=== PATIENT | female | born 1960 | race African-American/Black ===

== ENCOUNTER 2021-03-21 18:14 | Emergency (ER) | payer BC ==
[2021-03-21 18:26] VITALS: BP 175/76; PULSE 72; TEMP 97.6; BMI 31.4
[2021-03-21] MEDS ORDERED: LIDOCAINE 5% TOPICAL PATCH TP ONE (18:37)
[2021-03-21] MEDS ORDERED: NAPROXEN 500 MG TABLET PO ONE (18:37)
[2021-03-21] MEDS ORDERED: PRESCRIPTION PAD 1 EACH EACH NR ONE (18:55)
[2021-03-21] MEDS ORDERED: LIDOCAINE 5% TOPICAL PATCH ONE (18:56)
[2021-03-21] MEDS ORDERED: NAPROXEN 500 MG TABLET ONE (18:56)
[2021-03-21] MEDS ORDERED: SODIUM CHLORIDE 1,000 ML IV ONE (19:36)
[2021-03-21 19:39] LABS: EPITHELIAL CELLS FEW /hpf
[2021-03-21 20:36] LABS: ALBUMIN 4.2 g/dl (3.4-5.0); BILIRUBIN,TOTAL 0.4 mg/dl (0.2-1); CREATININE 0.7 mg/dl (0.55-1.3); TOT PROT 7.2 g/dl (6.4-8.2)
[2021-03-21 21:49] LABS: BASO % 0.4 % (0-2.0); EOS % 1.8 % (0-4.5); HEMATOCRIT 37.6 % (32.4-45.2); HEMOGLOBIN 12.2 GM/dL (10.7-15.3); LYMPH % 43.2 % (8-40); MCH 25.8 pg (25.7-33.7); MCHC 32.5 g/dl (32.0-36.0); MEAN CELL VOLUME 79.3 fl (80-96); MEAN PLT VOLUME 9.7 fl (7.5-11.1); MONO % 5.4 % (3.8-10.2); NEUT % 49.2 % (42.8-82.8); PLATELET COUNT 247 10^3/uL (134-434); RBC 4.74 M/mm3 (3.60-5.2); RDW 13.7 % (11.6-15.6); WHITE BLOOD COUNT 10.2 K/mm3 (4.0-10.0)
[2021-03-21] MEDS ORDERED: LIDOCAINE PATCH REMOVAL MC SCH (22:00)
== END 2021-03-21 22:16 | disposition home or self-care (01) ==
LOC: FER 18:14
PROC: 3E0337Z Introduction of Electrolytic and Water Balance Substance into Peripheral Vein, Percutaneous Approach (ICD-10-PCS; principal; 2021-03-21)
DX: M54.50 Low back pain, unspecified (principal)
CPT/HCPCS: 36415; 74176-TC; 80053; 81003; 81015; 85025; 87086; 99285-25

== ENCOUNTER 2022-01-11 04:28 | Day surgery (SDC) | payer BC ==
[2022-01-09 15:57] VITALS: BMI 32.9
[2022-01-11 09:10] VITALS: BP 113/67; PULSE 62; RESP 16; TEMP 97
[2022-01-11] MEDS ORDERED: ONDANSETRON 4 MG/2 ML VIAL IVPUSH PRN (09:39)
[2022-01-11] MEDS ORDERED: LACTATED RINGERS SOLUTION 1,000 ML IV SCH (09:45)
== END 2022-01-11 09:25 | disposition home or self-care (01) ==
LOC: JASU-ENDO 04:28
PROVIDERS: ATTEND Internal Medicine Gastroenterology
PROC: 0DB28ZX Excision of Middle Esophagus, Via Natural or Artificial Opening Endoscopic, Diagnostic (ICD-10-PCS; 2022-01-11)
PROC: 0DB78ZX Excision of Stomach, Pylorus, Via Natural or Artificial Opening Endoscopic, Diagnostic (ICD-10-PCS; 2022-01-11)
PROC: 0DJD8ZZ Inspection of Lower Intestinal Tract, Via Natural or Artificial Opening Endoscopic (ICD-10-PCS; principal; 2022-01-11 08:00)
DX: K29.50 Unspecified chronic gastritis without bleeding (principal); K20.90 Esophagitis, unspecified without bleeding
CPT/HCPCS: 88305-TC; 88312-TC; 88342-TC

== ENCOUNTER 2022-04-01 21:03 | Emergency (ER) | payer BC ==
[2022-04-01 21:10] VITALS: BP 140/75; PULSE 96; RESP 18; TEMP 97.8; BMI 32.0
== END 2022-04-02 00:27 | disposition home or self-care (01) ==
LOC: JERFT 21:03
DX: R00.2 Palpitations (principal)
CPT/HCPCS: 93005; 93010; 99281-25

== ENCOUNTER 2022-07-05 16:58 | Emergency (ER) | payer BC ==
[2022-07-05 17:25] VITALS: TEMP 98; BMI 31.4
[2022-07-05 18:49] VITALS: BP 145/77; PULSE 72; RESP 19
== END 2022-07-05 18:49 | disposition home or self-care (01) ==
LOC: JER 16:58
DX: I10 Essential (primary) hypertension (principal); R51.9 Headache, unspecified; H53.71 Glare sensitivity
CPT/HCPCS: 99282-25

== ENCOUNTER 2023-08-09 13:07 | Inpatient (IN) | payer BC, OTHER ==
[2023-08-09 14:05] VITALS: BMI 29.0
[2023-08-09 14:12] LABS: BASO % 0.7 % (0-2.0); EOS % 0.9 % (0-4.5); HEMATOCRIT 39.3 % (32.4-45.2); HEMOGLOBIN 12.8 GM/dL (10.7-15.3); LYMPH % 39.1 % (8-40); MCH 25.9 pg (25.7-33.7); MCHC 32.5 g/dl (32.0-36.0); MEAN CELL VOLUME 79.8 fl (80-96); MEAN PLT VOLUME 10.5 fl (7.5-11.1); MONO % 5.8 % (3.8-10.2); NEUT % 53.5 % (42.8-82.8); PLATELET COUNT 231 10^3/uL (134-434); RBC 4.93 M/mm3 (3.60-5.2); RDW 13.5 % (11.6-15.6); WHITE BLOOD COUNT 11.7 K/mm3 (4.0-10.0)
[2023-08-09 14:16] LABS: INR 1.08 (0.83-1.09); PROTHROMBIN TIME (PATIENT) 12.2 SEC (9.7-13.0)
[2023-08-09 14:19] LABS: ACTIVATED PTT 33.7 SECONDS (25.2-36.5)
[2023-08-09 14:44] LABS: POTASSIUM 3.2 mmol/L (3.5-5.1)
[2023-08-09 14:46] LABS: CALCIUM 9.2 mg/dL (8.5-10.1)
[2023-08-09 14:47] LABS: ALBUMIN 3.8 g/dl (3.4-5.0); BLOOD UREA NITROGEN 15.3 mg/dL (7-18); MAGNESIUM 1.9 mg/dL (1.8-2.4)
[2023-08-09 14:50] LABS: CREATININE 1.1 mg/dL (0.55-1.3)
[2023-08-09 14:51] LABS: BILIRUBIN,TOTAL 0.9 mg/dL (0.2-1)
[2023-08-09 14:52] LABS: TOT PROT 7.3 g/dl (6.4-8.2)
[2023-08-09] MEDS ORDERED: POTASSIUM CHLORIDE ORAL LIQUID 20 MEQ/15 ML ONE (15:15)
[2023-08-09] MEDS: POTASSIUM CHLORIDE ORAL LIQUID 20 MEQ/15 ML PO ONE (15:18)
[2023-08-09] MEDS ORDERED: ACETAMINOPHEN INJECTION 100 ML IVPB ONE (16:02)
[2023-08-09] MEDS: ACETAMINOPHEN 1000 MG/100 ML BAG IVPB ONE (16:08)
[2023-08-09] MEDS ORDERED: ASPIRIN 81 MG CHEWABLE TABLETS ONE (18:20)
[2023-08-09] MEDS: ASPIRIN 81 MG CHEWABLE TABLETS PO ONE (18:22)
[2023-08-09] MEDS ORDERED: METOPROLOL TARTRATE 25 MG TABLET (FP) ONE (21:22)
[2023-08-09] MEDS: METOPROLOL TARTRATE 25 MG TABLET (FP) PO SCH (21:54)
[2023-08-09 21:55] VITALS: RESP 18
[2023-08-10 08:30] LABS: POTASSIUM 3.8 mmol/L (3.5-5.1)
[2023-08-10 08:34] LABS: CALCIUM 9.3 mg/dL (8.5-10.1)
[2023-08-10 08:35] LABS: BLOOD UREA NITROGEN 17.8 mg/dL (7-18)
[2023-08-10 08:36] LABS: BASO % 0.6 % (0-2.0); EOS % 1.1 % (0-4.5); HEMATOCRIT 37.4 % (32.4-45.2); HEMOGLOBIN 12.4 GM/dL (10.7-15.3); MCH 26.4 pg (25.7-33.7); MCHC 33.2 g/dl (32.0-36.0); MEAN CELL VOLUME 79.3 fl (80-96); MEAN PLT VOLUME 10.6 fl (7.5-11.1); MONO % 5.8 % (3.8-10.2); NEUT % 57.5 % (42.8-82.8); PLATELET COUNT 192 10^3/uL (134-434); RBC 4.72 M/mm3 (3.60-5.2); RDW 13.6 % (11.6-15.6)
[2023-08-10 08:37] LABS: ALBUMIN 3.4 g/dl (3.4-5.0); CREATININE 0.9 mg/dL (0.55-1.3); PHOSPHOROUS 3.5 mg/dL (2.5-4.9)
[2023-08-10 08:39] LABS: BILIRUBIN,TOTAL 0.6 mg/dL (0.2-1); TOT PROT 6.4 g/dl (6.4-8.2)
[2023-08-10] MEDS: HYDROCHLOROTHIAZIDE 25 MG TABLET (FP) PO SCH (09:30)
[2023-08-10] MEDS: ASPIRIN COATED 81 MG TABLET.EC PO SCH (09:30)
[2023-08-10] MEDS: LOSARTAN POTASSIUM 50 MG TABLET PO SCH (09:30)
[2023-08-10] MEDS: ENOXAPARIN NA (PORCINE) 40 MG/0.4 ML DISP.SYRIN SQ SCH (09:31)
[2023-08-10 10:23] LABS: PLATELET ESTIMATE ADEQUATE
[2023-08-10 13:32] VITALS: BP 136/73; PULSE 80; TEMP 98.1
== END 2023-08-10 15:00 | disposition home or self-care (01) | DRG 310 ==
LOC: JER 13:07 → JERBED 17:58 → J4W 08-10 00:26
PROVIDERS: ADMIT Internal Medicine; ATTEND Internal Medicine
DX: I48.0 Paroxysmal atrial fibrillation (principal); R00.2 Palpitations; R07.9 Chest pain, unspecified; I10 Essential (primary) hypertension; E78.5 Hyperlipidemia, unspecified
CPT/HCPCS: 0241U-QW; 36415; 71045-TC-FY; 80053; 83735; 84100; 84439; 84443; 84484; 85025; 85610; 85730; 93005; 93010; 99285-25; J0131